=== PATIENT | female | born 2005 | race Caucasian/White ===

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

== ENCOUNTER 2024-08-21 20:27 | Emergency (ER) | payer OTHER, BC, SELFPAY ==
[2024-08-21 20:29] VITALS: BP 143/90; PULSE 97; RESP 16; TEMP 36.6; O2SAT 97; BMI 33.2
--- NOTE | 2024-08-21 20:35 | ED.ANIMALBIT ---
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 She is a generally healthy 18-year-old. She thinks it is over 5 years since she had a tetanus shot. A dog at the facility bit her on her lopez today. The dog is up-to-date on rabies vaccines as well as other vaccines. She was advised to come to the emergency room for evaluation. She has no loss of function of the foot. No sensation loss. No motor function loss. Related Data Previous Rx's ?Medication ?Instructions ?Recorded ondansetron 4 mg disintegrating 4 mg PO Q6H PRN nausea and 07/27/22 tablet vomiting #10 tabs amoxicillin 875 mg-potassium 1 tab PO BID 3 days #6 tabs 08/22/24 clavulanate 125 mg tablet Allergies Allergy/AdvReac Type Severity Reaction Status Date / Time No Known Allergies Allergy Verified 08/21/24 20:33 Review of Systems Review of Systems: Yes all other systems are reviewed and are negative COUNT INCLUDES THE [facility] Social History Social History Advance Directives: No Advance Directives Information Provided: Yes Physical Exam ED Vital Signs: Vital Signs - 24 hr 08/21/24 20:29 08/22/24 00:16 Temperature 98 F 97.4 F Pulse Rate 97 78 Respiratory Rate 16 16 Blood Pressure 143/90 H 128/71 Pulse Oximetry 97 96 Oxygen Delivery Method Room Air Room Air BMI result Body Mass Index 33.2 Const Other: The patient has the appearance of an ordinarily healthy 18-year-old. She does not appear in acute distress HENGA Head: Yes normal to inspection Face and sinus: Yes normal facial exam Eyes General: appearance normal, both eyes and all related structures Resp Effort & Inspection: normal respiratory effort Skin Other: There are signs of a bite handy at the upper lopez of the right lower leg. No deep breaks in the skin appreciated. Please see the picture below. Neuro Other: The patient is awake and alert, pleasant cooperative. She has normal motor function and sensory function of the right foot. Extrem Other: The patient has some bruising to the mid upper lopez consistent with a dog bite. There is no bony deformity or significant bony tenderness. Normal function of the knee and the ankle. The foot is well-perfused. Course Course Course Narrative: This is an RME: Additional HPI, ROS, PE not included below will be deferred to primary provider. RME assessment and note performed by: Dominique Acevedo PA-C This is a 18-year-old female who presents emergency department with complaints of dog bite to right lower leg. She works at the [employer], and a dog that is up-to-date with immunizations bit her. Unable to visualize wound in triage however patient showed me picture, does not need wound repair. Looks like it does need cleansing. She is unsure when her last tetanus was. Plan: further ER evaluation needed Medications Administered Discontinued Medications Generic Name Dose Route Start Last Admin Trade Name Freq PRN Reason Stop Dose Admin Acetaminophen 650 mg 08/21/24 22:27 08/21/24 22:29 Acetaminophen 325 Mg Tablet PO 08/21/24 22:28 650 mg ONCE ONE Administration Medical Decision Making Medical Decision Making MDM Narrative: The patient presents with a dog bite to the right lopez. The dog is up-to-date on vaccinations. There seemed to be some minor breaks to the skin but no deep breaks to the skin. The patient does not think she has had a tetanus shot in over 5 years. She was given a tetanus booster. She will be started on Augmentin prophylactically. She should rest and elevate the leg. Follow up with [facility]. return if worse. Discharge Plan Discharge Clinical Impression: Dog bite Patient Disposition: Home, Self-Care Instructions: Animal Bite (ED) Additional Instructions: You has been given a tetanus shot. You were started on a short course of antibiotic prophylaxis to help lower the likelihood have a wound infection. Please take the amoxicillin/clavulanate 2 times a day, approximately every 12 hours. Next dose in the morning. You may use ibuprofen and acetaminophen as needed for pain. I would recommend resting over the weekend and keeping the leg elevated. Follow up with the [facility] next week. Return to the emergency room if you feel you develop any significant infection or other complication. Prescriptions: New amoxicillin-pot clavulanate 875-125 mg tablet 1 tab PO BID 3 Days Qty: 6 0RF No Action ondansetron 4 mg tablet,disintegrating 4 mg PO Q6H PRN (Reason: nausea and vomiting) Qty: 10 0RF Referrals: [facility] [Provider Group] (dog bite) Print Language: [place]
[2024-08-21] MEDS: Acetaminophen 325 MG TABLET 650 MG PO (22:29)
--- NOTE | 2024-08-21 22:30 | PC.NURSE ---
patient medicated w/ tylenol for 9/10 right leg pain
[2024-08-22 00:16] VITALS: BP 128/71; PULSE 78; RESP 16; TEMP 36.3; O2SAT 96
[2024-08-22] MEDS: Amoxicillin/Potassium Clav 875 MG TABLET PO (01:02)
[2024-08-22] MEDS: Diphth,Pertus(ACell),Tet Adult 0.5 ML SYRINGE IM (01:02)
[2024-08-22 01:21] VITALS: BP 128/71; PULSE 78; RESP 16; TEMP 36.3; O2SAT 96
== END 2024-08-22 01:24 | disposition home or self-care (01) ==
PROVIDERS: Emergency Provider Emergency Medicine
DX: S81.851A Open bite, right lower leg, initial encounter (principal); W54.0XXA Bitten by dog, initial encounter; Y93.F9 Activity, other caregiving; Y92.59 Other trade areas as the place of occurrence of the external cause; Y99.0 Civilian activity done for income or pay; Z23 Encounter for immunization
CPT/HCPCS: 90471; 90715; 99284